=== PATIENT | female | born 1980 | race Caucasian/White ===

== ENCOUNTER 2022-10-27 21:41 | Emergency (ER) | payer SELFPAY ==
[2022-10-27 21:44] VITALS: BP 146/111; PULSE 103; RESP 16; TEMP 36.4; O2SAT 100
[2022-10-27 22:19] VITALS: BP 148/101; PULSE 99; RESP 15; TEMP 36.6; O2SAT 99
[2022-10-27 22:58] LABS: Basophils Absolute Auto 0.1 K/mm3 (0.0-0.1); Basophils Percent Auto 0.7 % (0.2-1.2); Eosinophils Absolute Auto 0.9 K/mm3 (0-0.3); Eosinophils Percent Auto 12.2 % (0-4.4); Hematocrit 32.6 % (37.0-47.0); Hemoglobin 11.1 g/dL (12.0-15.0); Immature Granulocyte Absolute 0.03 K/mm3 (0.00-0.031); Immature Granulocyte Percent A 0.4 % (0-0.5); Lymphocytes Absolute Auto 2.45 K/mm3 (0.9-3.2); Lymphocytes Percent Auto 33.8 % (18.3-44.2); Mean Corpuscular Hemoglobin 29.8 pg (26-34); Mean Corpuscular Volume 87.4 fl (80-100); Mean Platelet Volume 9.9 fl (7.4-10.4); Monocytes Absolute Auto 0.6 K/mm3 (0.1-0.6); Monocytes Percent Auto 8.3 % (2.6-8.5); Neutrophils Absolute Auto 3.2 K/mm3 (1.3-6.7); Neutrophils Percent Auto 44.6 % (45.5-73.1); Platelet Count Result 288 k/mm3 (150-375); Red Blood Count 3.73 M/mm3 (4.2-5.4); Red Cell Distribution Width 13.2 % (11.5-14.5); White Blood Count 7.2 K/mm3 (4.5-10.0)
[2022-10-27 23:08] LABS: INR 0.9
[2022-10-27 23:09] LABS: Alanine Aminotransferase 60 U/L (6-35); Albumin Level 4.5 g/dL (3.5-5.1); Alkaline Phosphatase 82 U/L (38-126); Anion Gap 10 mmol/L (8-16); Aspartate Amino Transferase 55 U/L (14-36); Bilirubin,Total 0.4 mg/dL (0.2-1.3); Blood Urea Nitrogen 9 mg/dL (7-17); Calcium 9.5 mg/dL (8.4-10.2); Carbon Dioxide 27 mmol/L (22-30); Chloride 103 mmol/L (98-107); Estimated CRCL calculation 115 ml/min; Estimated Glomerular Filt Rate > 60; Glucose 123 mg/dL (65-110); Partial Thromboplastin Time 26.4 SECONDS (22.3-36.8); Potassium 3.9 mmol/L (3.4-5.0); Sodium 140 mmol/L (137-145)
--- NOTE | 2022-10-27 23:10 | ED.ABDPAIN ---
HPI - Abdominal Pain General Chief Complaint: Abdominal Pain Stated Complaint: abd pain, blood in stool Time Seen by Provider: 10/27/22 21:54 Source: patient Mode of arrival: ambulatory Limitations: no limitations History of Present Illness HPI narrative: Patient is a 41-year-old female who presents to the ED with report of left lower quadrant abdominal pain. Patient reports having pain intermittent for the past 7 days. She states it was mild at first, but became more severe today. She has been taking tylenol and ibuprofen for the pain with some improvement, but was unable to find much relief today. Pain somewhat radiates through to left low back. Patient then had an episode of BRBPR around 830pm tonight which prompted her presentation. She states the blood was mixed in with soft stool. Denied any pain with the BM. Patient also reports having N/V, denies any fevers, urinary sx's. Patient has never had similar symptoms before. Denies history of diverticulosis or diverticulitis. She does report history of colonoscopy 7 years ago in which a precancerous polyp was removed. She has not had any further colonoscopy since then. Related Data Allergies Allergy/AdvReac Type Severity Reaction Status Date / Time iohexol AdvReac Difficulty Verified 10/27/22 21:43 [From contrast - CT, X-RAY] Breathing Review of Systems Review of Systems: CONSTITUTIONAL: Denies fever, chills, or sweats. CARDIOVASCULAR: Denies chest pain. RESPIRATORY: Denies dyspnea. GASTROINTESTINAL: See HPI. GENITOURINARY: Denies dysuria or hematuria. SKIN: Denies rash or itching. MUSCULOSKELETAL: See HPI. All systems reviewed & are unremarkable except as noted in HPI and below Exam Narrative: GENERAL: Uncomfortable appearing, obese with BMI of 37.6, non-toxic, in no acute distress. HEAD: Normocephalic, atraumatic. NECK: Supple. No adenopathy, no masses. RESPIRATORY: Airway patent, respirations nonlabored. Clear to auscultation bilaterally, no rales, rhonchi, wheezing. CARDIOVASCULAR: Regular rate and rhythm without murmurs, rubs, or gallops. Radial pulses 2+ and equal bilaterally. ABDOMINAL: Soft, tenderness in left mid and lower abdomen, no rebound. Nondistended, no hepatosplenomegaly. Normoactive BS. MUSCULOSKELETAL: Moves all extremities. Strength/ROM intact without gross deformities. SKIN: Warm, dry, normal color. No rashes. NEURO: A&O X3. Speech clear. Cranial nerves II-XII grossly intact. Steady gait. No ataxic movements. PSYCHIATRIC: Appropriate mood and affect. Normal interaction. Course Vital Signs Vital signs: Vital Signs Temperature 97.5 F L 10/27/22 21:44 Pulse Rate 103 H 10/27/22 21:44 Respiratory Rate 16 10/27/22 21:44 Blood Pressure 146/111 H 10/27/22 21:44 Pulse Oximetry 100 10/27/22 21:44 Oxygen Delivery Room Air 10/27/22 21:44 Temperature 98 F 10/27/22 22:19 Pulse Rate 101 H 10/27/22 23:28 Respiratory Rate 17 10/27/22 23:28 Blood Pressure 151/107 H 10/27/22 23:28 Pulse Oximetry 98 10/27/22 23:28 Oxygen Delivery Room Air 10/27/22 21:44 MDM - Abdominal Pain MDM Narrative Medical decision making narrative: Patient presented to ED with several day history of LLQ abdominal pain, N/V, BRBPR. Patient's vital stable upon arrival. Borderline tachycardic. Patient in no acute distress, but does appear mildly uncomfortable on exam. ED nurse initially had some difficulty obtaining IV on patient. Patient had poor experience with IV in left AC in the past and refused to allow IV to be placed there today. No other veins were easily identifiable for IV. An IV was obtained in patient's R forearm using US-guidance by Dr. Mcmahan. Fluids, morphine, Zofran were ordered. As the ED nurse was attempting to start fluids, patient's IV infiltrated. She did not want another IV attempted. I ordered p.o. Tylenol and Zofran to at least provide some relief in the meantime, however patient refused this. Patient rep
[2022-10-27] MEDS: SODIUM CHLORIDE 0.9% IV 1,000 ML 999 ML IV CONT (23:14)
[2022-10-27 23:28] VITALS: BP 151/107; PULSE 101; RESP 17; O2SAT 98
[2022-10-27 23:30] LABS: Appearance Urine Clear (Clear); Bilirubin Urine Negative (Negative); Blood Urine Negative (Negative); Color Urine Yellow (Yellow); Glucose Urine UA Negative (Negative); Ketones Urine Negative (Negative); Leukocyte Esterase Ur Negative LEU/UL (Negative); Nitrate Urine Negative (Negative); Protein Urine Negative (Negative); Specific Grav Ur 1.017 (1.001-1.035)
[2022-10-27 23:40] LABS: Add Urine Microscopic? NO
== END 2022-10-27 23:55 | disposition left against medical advice (07) ==
PROVIDERS: Preventive Medicine Aerospace Medicine; Emergency Provider Physician Assistant
DX: R10.32 Left lower quadrant pain (principal); K62.5 Hemorrhage of anus and rectum
CPT/HCPCS: 36415; 80053; 81003; 81025; 85025; 85610; 85730; 86850; 86900; 86901; 99283; J7030